=== PATIENT | male | born 1970 | race Hispanic/Latino ===

== ENCOUNTER 2023-11-14 12:48 | Outpatient (RCR) | payer BC ==
[~2023-11-14 12:48] MED LIST: ASPIRIN81 MG PO; ATORVASTATIN CA20 MG PO; CELEXA20 MG PO; CLOPIDOGREL75 MG PO; METFORMIN HCL500 MG PO; OMEPRAZOLE40 MG PO; VASCEPA1 GM PO; ZETIA10 MG PO
== END 2023-12-07 ==
LOC: PT 12:48
PROVIDERS: ATTEND Internal Medicine Infectious Disease
DX: M67.813 Other specified disorders of tendon, right shoulder (principal)